=== PATIENT | male | born 1955 | race Caucasian/White ===

== ENCOUNTER → 2023-05-17 | Outpatient (CLI) | payer MEDICARE, SELFPAY ==
[2023-05-17 18:31] LABS: PSA,Total - Annual Screen 1.44 ng/mL (0.00-4.00); Thyroid Stim Hormone (TSH) 2.23 uIU/mL (0.358-3.74)
== END | disposition home or self-care (01) ==
LOC: MTLAB 16:54
PROVIDERS: Referring Provider Physician Assistant Surgical; Visit Provider Physician Assistant Surgical
DX: N40.0 Benign prostatic hyperplasia without lower urinary tract symptoms (principal); E03.9 Hypothyroidism, unspecified; Z12.5 Encounter for screening for malignant neoplasm of prostate
CPT/HCPCS: 36415; 84153; 84443; G0103

== ENCOUNTER → 2023-05-20 | Outpatient (CLI) | payer MEDICARE, SELFPAY ==
[2023-05-22 16:09] LABS: H.Pylori Breath Test Negative (Negative)
== END | disposition home or self-care (01) ==
PROVIDERS: Referring Provider Physician Assistant Surgical; Visit Provider Physician Assistant Surgical
DX: K29.70 Gastritis, unspecified, without bleeding (principal)
CPT/HCPCS: 83013

== ENCOUNTER 2023-09-11 15:49 | Emergency (ER) | payer MEDICARE, SELFPAY ==
[2023-09-11 15:52] VITALS: BP 204/92; PULSE 68; RESP 18; TEMP 36.1; O2SAT 100
--- NOTE | 2023-09-11 15:57 | EKG12_ITS ---
Test Reason : Blood Pressure : / mmHG Vent. Rate : 060 BPM Atrial Rate : 060 BPM P-R Int : 168 ms QRS Dur : 108 ms QT Int : 430 ms P-R-T Axes : 026 070 034 degrees QTc Int : 430 ms Normal sinus rhythm Normal ECG Confirmed by VENESSA CRAFT, ROBERT ([id number]), senior technical editor ELIJAH GAXIOLA ([id number]) on 09/16/2023 10:37:36 AM Referred By: Confirmed By:JUAN CARLOS CLIFFORD MD
--- NOTE | 2023-09-11 16:15 | NURSING ---
NO OLD EKGS
[2023-09-11 16:34] LABS: Absolute Lymphocyte Count 1.97 X10^3/uL (0.83-4.51); Absolute Neutrophil Count 5.9 X10^3/uL (2.0-7.7); Basophil# 0.04 X10^3/uL; Basophil% 0.4 % (0-1); Eosinophil# 0.36 X10^3/uL; Hematocrit 40.1 % (40-54); Hemoglobin 12.8 g/dL (13.0-16.5); Lymphocyte # 1.97 X10^3/ul (0.83-4.51); Lymphocyte % 21.9 % (19-41); Mean Corp Hgb Conc 31.9 g/dL (32-36); Mean Corpuscular Hgb 27.3 pg (27.0-32.0); Mean Corpuscular Volume 85.5 fL (80-94); Mean Platelet Vol. 10.6 fl (6.2-12.0); Monocyte# 0.66 X10^3/uL; Monocyte% 7.3 % (0-10); NRBC Flagged by Analyzer 0 % (0-5); Neutrophil # 5.92 X10^3/uL (2.7-7.7); Neutrophil % 66.1 % (47-70); Platelet Count 223 K/mm3 (150-450); RBC Distribution Width CV 13.4 % (11.6-14.6); RBC Distribution Width SD 41.9 fl (35.1-43.9); Red Blood Count 4.69 M/mm3 (4.6-6.2)
[2023-09-11 16:36] VITALS: BMI 28.8
[2023-09-11 16:37] VITALS: BP 208/86; PULSE 58; RESP 18; O2SAT 95
[2023-09-11 16:38] VITALS: O2SAT 97
--- NOTE | 2023-09-11 16:50 | RAD_ITS ---
RAD/Chest 1 View (Portable) IMPRESSION: No acute radiographic abnormalities. Electronically Signed: Johnathan Whitaker MD at 18:40 EST ,
[2023-09-11 16:51] LABS: Anion Gap 2 (5-15); BUN 12 mg/dL (7-18); Chloride 107 mmol/L (98-107); Creatinine, Serum 0.92 mg/dL (0.70-1.30); EST Glomerular Filtration Rate 87 mL/min (>60); Est Glom Filt Rate - Afr Amer 105 mL/min (>60); Estimated Creatinine Clearance 76.85 ml/min; Glucose 111 mg/dL (74-106); Potassium 3.2 mmol/L (3.5-5.1); Sodium Level 139 mmol/L (136-145); Troponin-I HS (w/2H Reflex) 7 pg/mL (3.0-78.0)
--- NOTE | 2023-09-11 16:59 | EDS_ITS ---
HPI History of Present Illness Chief Complaint: Chest Pain Informant: patient Onset/Context/Timing Onset: Today Activity at onset: sudden Timing: Intermittent and Lasts (Few seconds) Quality: Positive for Sharp and Tightness Location: Substernal Worsened By: Nothing Relieved By: Nothing Associated Symptoms: Positive for Nausea, Lightheadedness and Palpitations; Negative for Vomiting, Diaphoresis, Dyspnea, Cough, Fever or Acid Reflux Narrative Narrative: Patient presents with chest pain that began today. Patient states it has been intermittent. Patient states it lasts a few seconds. Patient describes it as sharp and tightness. Patient states it is over the substernal area. Patient states nothing makes it better nothing makes it worse. Patient admits to some nausea but denies any vomiting. Patient denies any shortness of breath or cough. Patient admits to some lightheadedness. Patient states he has had some vertigo recently where it feels like a spinning sensation. Patient also admits to some palpitations where he feels like his heart is racing at times. Patient also admits to a mild headache. CVD Risk Factors: Positive for Hypertension; Negative for Diabetes, Hypercholesterolemia, Family History 1' </=55 or Smoking PE Risk Factors: Negative for Recent Travel/Surgery, Recent Immobilization, Prior DVT or PE or Cancer [facility] Medical History (Updated 09/11/23 @ 19:[address] Momo Starks, ) Anxiety and depression BPH (benign prostatic hyperplasia) High cholesterol HTN (hypertension) Hypothyroid Home Medications levothyroxine 37.5 mcg capsule 37.5 mcg PO DAILY 05/17/23 [History Last Taken Unknown] metoprolol succinate 25 mg tablet,extended release 24 hr (Toprol XL) 100 mg PO DAILY 05/17/23 [History Last Taken Unknown] ondansetron HCl 8 mg tablet 8 mg PO Q8H PRN nausea and vomiting #30 tabs 05/17/23 [Rx Last Taken Unknown] bupropion HCl 150 mg tablet,12 hr sustained-release 150 mg PO DAILY 09/11/23 [History Last Taken Unknown] fluoxetine 20 mg capsule (Prozac) 20 mg PO DAILY 09/11/23 [History Last Taken Unknown] omeprazole 20 mg capsule,delayed release 20 mg PO DAILY 09/11/23 [History Last Taken Unknown] rosuvastatin 20 mg tablet 20 mg PO DAILY 09/11/23 [History Last Taken Unknown] tamsulosin 0.4 mg capsule (Flomax) 0.4 mg PO DAILY 09/11/23 [History Last Taken Unknown] Allergy/AdvReac Type Severity Reaction Status Date / Time codeine Allergy Hives Verified 09/11/23 15:52 Surgical History (Updated 09/11/23 @ 17:[address] Momo Starks, DO) Hx of rotator cuff surgery Hx of skin graft S/P ORIF (open reduction internal fixation) fracture Social History (Updated 09/11/23 @ 17:[address] Momo Starks, DO) Smoking Status: Never smoker substance use type: marijuana ROS ROS ED Constitutional Constitutional ED: Denies chills or fever(s) Eyes Eyes: Reports blurry vision; Denies change in vision ENT ENT ED: Reports rhinorrhea; Denies sore throat Cardiovascular Cardiovascular: Reports chest pain and palpitations Respiratory/Chest Respiratory/Chest: Denies cough or dyspnea Gastrointestinal Gastrointestinal: Reports nausea; Denies vomiting Genitourinary Genitourinary ED: Denies dysuria or hematuria Musculoskeletal Musculoskeletal: Denies back pain or neck pain Integumentary Denies abscess or rash Neurologic Neurologic: Reports headache(s); Denies weakness Allergic/Immunologic Allergic/Immunologic ED: Denies mouth swelling or urticaria EXAM Physical Exam Const Vital Signs: 09/11/23 15:52 09/11/23 16:37 09/11/23 16:38 Temperature 96.9 F L Temperature Source Temporal Pulse Rate 68 58 L Respiratory Rate 18 18 Respiratory Effort Blood Pressure 204/92 H 208/86 H Blood Pressure Mean 129 126 Pulse Ox 100 95 97 Oxygen Delivery Method Room Air Room Air Room Air 09/11/23 16:38 09/11/23 17:40 Temperature Temperature Source Pulse Rate 53 L Respiratory Rate 12 Respiratory Effort Normal Non-Labored Blood Pressure 178/82 H Blood Pressure Mean 114 Pulse Ox 97 Oxygen Delivery Method Room Air Positive well nourished, well developed and obese General Appearance ED: well developed and NAD Nutritional Appearance: obese HEENT Reports moist mucous membranes Neck supple and no JVD Resp normal respiratory effort and clear to auscultation bilaterally Cardio regular rate and regular rhythm GI soft to palpation and non-tender Extremity normal to inspection General Extremety ED: Negative for edema or tenderness General Extremity: Negative for edema Neuro oriented x3, CN's II-XII intact bilaterally and no sensory deficits noted Sensorium / Orientation: awake and alert Motor Exam: strength 5/5 throughout Heart Score History: Slightly/Non-Suspicious ECG: Normal Age: >/= 65 years Risk Factors: 1 or 2 Risk Factors Troponin: </= Normal Limit Score: 3 MDM MDM MDM Narrative Medical decision making narrative: Differential diagnosis includes cardiac dysrhythmia, cardiac ischemia, electrolyte abnormality, pneumonia, pneumothorax, musculoskeletal pain, and anxiety. EKG will be obtained to assess for cardiac dysrhythmia and cardiac ischemia. Chest x-ray will be obtained to assess for pneumonia and pneumothorax. CBC will be obtained to assess for leukocytosis and anemia. Basic metabolic profile will be obtained to assess for electrolyte abnormality and renal function. High-sensitivity troponin will be obtained to assess for cardiac ischemia. 2-hour repeat high-sensitivity troponin will be obtained to assess for ongoing cardiac ischemia. Patient has a Wells score of 0 and has no PE risk factors. Therefore, I do not feel this is from a pulmonary embolism. Lab Data Attestation: I reviewed the patient's lab results. Lab results narrative: CBC was reviewed and was within normal limits. Basic metabolic profile was reviewed. Potassium was slightly low at 3.2. High-sensitivity troponin was reviewed and was normal at 7. 2-hour repeat high-sensitivity troponin was reviewed and was normal at 8. Labs: Laboratory Results - last 24 hr 09/11/23 09/11/23 16:25 18:35 WBC 9.0 RBC 4.69 Hgb 12.8 L Hct 40.1 MCV 85.5 MCH 27.3 MCHC 31.9 L RDW Std Deviation 41.9 RDW Coeff of Kyung 13.4 Plt Count 223 MPV 10.6 Immature Gran % (Auto) 0.300 Neut % (Auto) 66.1 Lymph % (Auto) 21.9 [place] % (Auto) 7.3 Eos % (Auto) 4.0 Baso % (Auto) 0.4 Absolute Neuts (auto) 5.9 Absolute Lymphs (auto) 1.97 Nucleated RBC % 0 Sodium 139 Potassium 3.2 L Chloride 107 Carbon Dioxide 30.0 Anion Gap 2 L BUN 12 Creatinine 0.92 Estim Creat Clear Calc 76.85 Est GFR (MDRD) Af Amer 105 Est GFR (MDRD) Non-Af 87 BUN/Creatinine Ratio 13.0 Glucose 111 H Calcium 9.0 Troponin I High Sens 7 8 Radiography Chest X-Ray - ED: 1 View, Read by ED Physician, Read by Radiologist and No Acute Disease Diagnostic Testing: Clinical Impression(s) from Imaging Studies Chest X-Ray 09/11/23 16:50 IMPRESSION: No acute radiographic abnormalities. Electronically Signed: Johnathan Whitaker MD at 18:40 EST Reading Location ID and State: [id number] [facility] Tel , Service support , Portable 1 view chest x-ray was obtained. On my independent interpretation, lung hughes are clear. There is normal cardiac silhouette. Bony thorax is normal. There is no acute process noted. Radiologist also interpreted the x- ray and agrees. EKG Initial EKG: Attestation: I personally reviewed and interpreted this EKG as follows: Interpretation: Sinus Rhythm (60) and No Acute Injury Pattern Comments: EKG was obtained. On my independent interpretation, it showed a normal sinus rhythm with a rate of 60. VT interval, QRS interval, and QTc intervals were all normal. Vesper was normal. There are no acute ST or T wave changes. Prior EKG tracings: not available for review Prior: No Prior Treatment and Re-Evaluation :: Patient was advised of his findings. Patient was given a dose of oral potassium here. Patient is feeling better on reevaluation. Patient has a HEART score of 3. Patient was advised that this is low risk for acute cardiac event. Patient was instructed to follow-up with his primary care physician in 5 to 7 days. Patient was instructed to continue to monitor his blood pressure. Patient was instructed to return if worse in any way. Patient understood and was agreeable with the plan. All questions were answered. Discharge Plan Triage Chief Complaint: Chest Pain ED Provider: Momo Starks Dx/Rx/DC Orders Clinical Impression: Chest pain, Hypertension Instructions: ED Chest Pain, Uncertain Cause, ED Hypertension, Established Prescriptions: No Action ondansetron HCl 8 mg tablet 8 mg PO Q8H PRN (Reason: nausea and vomiting) Qty: 30 0RF metoprolol succinate [Toprol XL] 25 mg tablet extended release 24 hr 100 mg PO DAILY levothyroxine 37.5 mcg capsule 37.5 mcg PO DAILY bupropion HCl 150 mg tablet sustained-release 12 hr 150 mg PO DAILY rosuvastatin 20 mg tablet 20 mg PO DAILY fluoxetine [Prozac] 20 mg capsule 20 mg PO DAILY omeprazole 20 mg capsule,delayed release(DR/EC) 20 mg PO DAILY tamsulosin [Flomax] 0.4 mg capsule 0.4 mg PO DAILY Primary Care Provider: Suellen Pennington Referrals: Suellen Pennington DO [Primary Care Provider] - 5-7 Days Disposition Disposition: Home, Self Care
[2023-09-11] MEDS: Potassium Chloride Oral Tablet 20 MEQ 40 MEQ PO (17:38)
[2023-09-11 17:40] VITALS: BP 178/82; PULSE 53; RESP 12; O2SAT 97
[2023-09-11 18:31] LABS: Reflex Troponin-HS? (from REC) Y
[2023-09-11 19:00] VITALS: BP 180/86
[2023-09-11 19:00] LABS: Troponin-I HS 8 pg/mL (3.0-78.0)
== END 2023-09-11 19:43 | disposition home or self-care (01) ==
PROVIDERS: Emergency Provider Emergency Medicine; PCP Family Medicine; Visit Provider Emergency Medicine
DX: R07.9 Chest pain, unspecified (principal); E78.00 Pure hypercholesterolemia, unspecified; I10 Essential (primary) hypertension; E03.9 Hypothyroidism, unspecified; Z79.899 Other long term (current) drug therapy; F41.8 Other specified anxiety disorders; E87.6 Hypokalemia
CPT/HCPCS: 71045; 80048; 84484; 85025; 93005; 99284; A4216

== ENCOUNTER 2024-08-11 10:45 | Observation (INO) | payer MEDICARE, SELFPAY ==
[2024-08-11] VITALS (11 sets, daily range): BP systolic 116–237; BP diastolic 60–97; PULSE 42–60; RESP 11–19; TEMP 36–36.4; O2SAT 94–100; BMI 28.2; BMI 27.8
--- NOTE | 2024-08-11 10:54 | EKG12_ITS ---
Test Reason : CP Blood Pressure : / mmHG Vent. Rate : 048 BPM Atrial Rate : 048 BPM P-R Int : 182 ms QRS Dur : 102 ms QT Int : 448 ms P-R-T Axes : 015 035 043 degrees QTc Int : 400 ms Sinus bradycardia Otherwise normal ECG Confirmed by Oli Kiser ([id number]), window caser ELIJAH GAXIOLA ([id number]) on 08/12/2024 6:46:50 AM Referred By: Confirmed By:Oli Kiser
--- NOTE | 2024-08-11 10:54 | ED.RN ---
PT WAS SEEN BY PCP YESTERDY AND ADVISED TO COME OVER. PT DID NOT WANT TO COME IN. IS PRESENT AT THE BEDSIDE AND BROUGHT HIM TODAY. SHE SAID HE HAS HAD THESE EPISODES IN THE PAST BUT THIS ONE SEEMED WORSE. HE HAS SOME SOB, FEELS FOGGY I HIS HEAD, AND FEELS A FLUTTERING IN HIS CHEST. DR. ZAMBRANO AT BEDSIDE AND EKG COMPLETED NOW.
--- NOTE | 2024-08-11 10:55 | CT_ITS ---
STUDY: CT BRAIN WITHOUT CONTRAST REASON FOR EXAM: Male, 68 years old. Headache, hypertension RADIATION DOSAGE (If Supplied By Facility): CTDIvol = ( 44.99 ) mGy, DLP = ( 846.73 ) mGycm TECHNIQUE: Transaxial CT imaging of the brain was performed without administration of intravenous contrast material. Individualized dose optimization techniques were used for this CT. COMPARISON: No relevant priors. FINDINGS: Normal soft tissue structures. Normal calvarium. There is mild cerebral atrophy with widening of the extra-axial spaces and ventricular dilatation. Normal white matter tracts of the cerebral hemispheres. Normal basal ganglia and thalami. Normal brainstem. Normal cerebellum. There is no intracranial hemorrhage. There are no findings of an acute ischemic infarction. Nodular mucosal thickening at the base of both maxillary sinuses slightly more prominent on the left side. Partial opacification of the ethmoid sinuses bilaterally. Mucosal thickening of the sphenoid sinus more prominent on the right side. CT/Brain/Head without Contrast IMPRESSION: Chronic involutional changes of the brain. Sinusitis. Electronically Signed: Gerard Nuñez MD at 11:19 EDT ,
--- NOTE | 2024-08-11 10:56 | ED.VIS.CHEST ---
HPI History of Present Illness Chief Complaint: Chest Pain Narrative Narrative: 68-year-old male past medical history of hypertension, presents with multiple complaints ranging from bradycardia to chest pain to brain fog/headache that he has had for the last 4 to 5 days. His states that he has past medical history of anxiety and gets frequent panic attacks as well. He was seen by his primary care provider yesterday, who wanted to refer him to cardiology, and told him to come to the emergency department because of bradycardia in the 40s. He does take metoprolol but they state that he had it changed to 50 mg down from 100. He mistakenly took 100 mg today. He and his state that he has had intermittent chest pain over the last 4 to 5 days, more frequently. Pain only lasts a few minutes. No nausea or vomiting, no shortness of breath. He states that his brain feels foggy. He has had intermittent headaches as well. He states he is not feeling well, and is very lightheaded and somewhat weak. CVD Risk Factors: Positive for Hypertension [facility] Medical History Anxiety and depression Hypothyroid BPH (benign prostatic hyperplasia) High cholesterol HTN (hypertension) Home Medications ?Medication ?Instructions ?Recorded ?Last Taken ?Type rosuvastatin 20 mg tablet 20 mg PO DAILY CHOLESTEROL 09/11/23 08/11/24 History tamsulosin 0.4 mg capsule (Flomax) 0.4 mg PO DAILY PROSTATE 09/11/23 08/11/24 History clonazepam 0.5 mg tablet 0.5 mg PO DAILY ANXIETY 08/11/24 08/10/24 History fluoxetine 40 mg capsule 40 mg PO DAILY DEPRESSION 08/11/24 08/11/24 History levothyroxine 75 mcg tablet 75 mcg PO DAILY THYROID 08/11/24 08/11/24 History metoprolol succinate 50 mg 50 mg PO DAILY BLOOD PRESSURE 08/11/24 Unknown History tablet,extended release 24 hr omeprazole 40 mg capsule,delayed 40 mg PO BID GERD 08/11/24 08/11/24 History release trazodone 50 mg tablet 50 mg PO QHS SLEEP 08/11/24 Unknown History Allergy/AdvReac Type Severity Reaction Status Date / Time codeine Allergy Hives Verified 08/11/24 11:04 Surgical History S/P ORIF (open reduction internal fixation) fracture Hx of rotator cuff surgery Hx of skin graft Social History Smoking Status: Never smoker substance use type: marijuana ROS ROS ED ROS Narrative Constitutional: No fever, no chills. HEENT: No sore throat. No neck pain. No loss of vision. No rhinorrhea. Cardiovascular: Intermittent chest pain. Positive palpitations. No pedal edema. Low heart rate in the 40s. Respiratory: No cough, no shortness of breath. Abdominal: No abdominal pain. No nausea. No vomiting. Genitourinary: No dysuria. No hematuria. Musculoskeletal: No myalgias. No arthralgias. Neurologic: Positive headaches. Brain feels foggy. No dizziness. Positive lightheadedness and weakness. Skin: No rash. No change in color. Psychiatric: No depression. Positive anxiety. EXAM Physical Exam Narrative Exam Narrative: Afebrile. Vital signs noted. HEENT: Normocephalic. Atraumatic. PERRL, EOMI. Neck soft and supple. No point tenderness or step off. Cardiovascular: Positive bradycardia, no murmurs, rubs, or gallops appreciated. Respiratory: No tachypnea. Lungs clear to auscultation bilaterally. Gastrointestinal: Abdomen soft, nontender, with normoactive bowel sounds. No rebound or guarding. Neurological: Awake. Alert. Nonfocal, nonlateralizing. Skin: No rash. Normal color. No pallor. Musculoskeletal: No pedal edema. Full range of motion extremities. Const Vital Signs: 08/11/24 10:46 08/11/24 10:50 08/11/24 10:50 Temperature 96.8 F L Temperature Source Temporal Pulse Rate 49 L Respiratory Rate 19 H Respiratory Effort Short of Breath Short of Breath Blood Pressure 200/97 H Blood Pressure Mean 131 Pulse Ox 100 Oxygen Delivery Method Room Air 08/11/24 10:54 08/11/24 11:46 08/11/24 12:00 Temperature Temperature Source Pulse Rate 49 L 44 L Respiratory Rate 18 16 Respiratory Effort Blood Pressure 184/87 H 184/87 H Blood Pressure Mean 119 119 Pulse Ox 100 94 98 Oxygen Delivery Method Room Air Room Air MDM MDM MDM Narrative Medical decision making narrative: Differential diagnosis includes but not limited to symptomatic bradycardia versus hypertensive encephalopathy versus ACS/non-STEMI. I reviewed the patient's prior records. Second 2022, he did have an episode of chest pain and was ruled out with biomarkers. EKG was obtained and interpreted by myself independently as sinus bradycardia at 48 bpm without ectopy. No noted STEMI. No significant change from September 11, 2023. Patient does have severely elevated systolic blood pressure here in the emergency department initially 200s systolic. He may be having hypertensive encephalopathy versus hypertensive urgency/emergency versus uncontrolled hypertension versus panic attack/anxiety. I reviewed his laboratory work and he has normal white count of 6.7 with hemoglobin normal at 13.4, hematocrit 42.3, electrolyte panel shows sodium of 141 with potassium 3.8, BUN 11 and creatinine normal at 0.98, glucose appropriately elevated at 105 with anion gap normal at 6. Initial high-sensitivity troponin is 4. TSH is elevated at 4.030. This is consistent with his hypothyroidism. He and his state that he is on Synthroid. I reviewed the radiology report of the CT of the brain and there is no acute process, no hemorrhage. Chest x-ray 1 view interpreted by myself independently shows no pneumonia or pneumothorax. I do not feel antibiotics are indicated. I reviewed the radiology report which confirms my independent interpretation. Upon repeat examination, briefly his blood pressure came down to 184/87, but then was 196 systolic. This may be related to some anxiety as stated previously versus uncontrolled hypertension. As his heart rate is as low as 41, he will be given hydralazine 10 mg IV. He was prescribed Klonopin yesterday and is still very anxious and has not taken it so he will be administered Ativan 0.5 mg IV. Given his symptomatic bradycardia, I do feel that he requires at least observation. Patient will be discussed with the hospitalist. He is in stable condition. History & Record Review Discussion w/independent historian: Patient and Family Lab Data Attestation: I reviewed the patient's lab results. Labs: Laboratory Results - last 24 hr 08/11/24 11:02 WBC 6.7 RBC 4.82 Hgb 13.4 Hct 42.3 MCV 87.8 MCH 27.8 MCHC 31.7 L RDW Std Deviation 42.4 RDW Coeff of Kyung 13.2 Plt Count MPV 11.2 Immature Gran % (Auto) 0.400 Neut % (Auto) 66.2 Lymph % (Auto) 19.8 [place] % (Auto) 8.1 Eos % (Auto) 4.9 Baso % (Auto) 0.6 Absolute Neuts (auto) 4.4 Absolute Lymphs (auto) 1.32 Nucleated RBC % 0 Differential Comment SCANNED Platelet Estimate ADEQUATE Plt Morphology Comment CLUMPED RBC Morphology NORM C+C Sodium 141 Potassium 3.8 Chloride 106 Carbon Dioxide 29.0 Anion Gap 6 BUN 11 Creatinine 0.98 Estim Creat Clear Calc 77.59 Est GFR (MDRD) Af Amer 98 Est GFR (MDRD) Non-Af 81 BUN/Creatinine Ratio 11.3 Glucose 105 Calcium 9.2 Troponin I High Sens 4 TSH 4.030 H Radiography Diagnostic Testing: Clinical Impression(s) from Imaging Studies Brain CT 08/11/24 10:55 IMPRESSION: Chronic involutional changes of the brain. Sinusitis. Electronically Signed: Gerard Nuñez MD at 11:19 EDT , Chest X-Ray 08/11/24 11:10 IMPRESSION: No acute abnormality is seen. Electronically Signed: Gerard Nuñez MD at 11:23 EDT , Management Discussion w/another healthcare provider: Hospitalist (Dr. Nirali Parker) Discharge Plan Dx/Rx/DC Orders Clinical Impression: Symptomatic bradycardia, Hypothyroidism, Hypertension, Anxiety Disposition Disposition: Acute Care Hospital [facility]
[2024-08-11] MEDS: Aspirin 81 MG TAB.CHEW 324 MG PO (11:02)
--- NOTE | 2024-08-11 11:10 | RAD_ITS ---
STUDY: X-RAY CHEST REASON FOR EXAM: Male, 68 years old. Chest pain TECHNIQUE: Single AP portable view of the chest. COMPARISON: Comparison is made with prior study dated September 11, 2023. FINDINGS: EKG electrodes are seen. The lungs are clear and expanded. There is no demonstrated pleural abnormality. Normal size heart. Normal mediastinum and pradeep. Normal visualized pulmonary arteries. There is atherosclerotic tortuosity of the aortic arch and descending thoracic aorta. There are degenerative changes of the visualized thoracic spine. Normal visualized ribs, clavicles, and shoulders. There is no demonstrated abnormality of the visualized soft tissue structures of the upper abdomen. RAD/Chest 1 View (Portable) IMPRESSION: No acute abnormality is seen. Electronically Signed: Gerard Nuñez MD at 11:23 EDT ,
[2024-08-11 11:22] LABS: Absolute Lymphocyte Count 1.32 X10^3/uL (0.83-4.51); Absolute Neutrophil Count 4.4 X10^3/uL (2.0-7.7); Basophil# 0.04 X10^3/uL; Basophil% 0.6 % (0-1); Eosinophil# 0.33 X10^3/uL; Eosinophils% 4.9 % (0-5); Hematocrit 42.3 % (40-54); Hemoglobin 13.4 g/dL (13.0-16.5); Lymphocyte # 1.32 X10^3/ul (0.83-4.51); Lymphocyte % 19.8 % (19-41); Mean Corp Hgb Conc 31.7 g/dL (32-36); Mean Corpuscular Hgb 27.8 pg (27.0-32.0); Mean Corpuscular Volume 87.8 fL (80-94); Mean Platelet Vol. 11.2 fl (6.2-12.0); Monocyte# 0.54 X10^3/uL; Monocyte% 8.1 % (0-10); NRBC Flagged by Analyzer 0 % (0-5); Neutrophil # 4.41 X10^3/uL (2.7-7.7); Neutrophil % 66.2 % (47-70); POSITIVE COUNT YES; RBC Distribution Width CV 13.2 % (11.6-14.6); RBC Distribution Width SD 42.4 fl (35.1-43.9); Red Blood Count 4.82 M/mm3 (4.6-6.2); White Blood Count 6.7 K/mm3 (4.4-11.0)
[2024-08-11 11:44] LABS: Anion Gap 6 (5-15); BUN 11 mg/dL (7-18); BUN/Creat Ratio 11.3 RATIO (10-20); Calcium,Total 9.2 mg/dL (8.5-10.1); Chloride 106 mmol/L (98-107); Creatinine, Serum 0.98 mg/dL (0.70-1.30); EST Glomerular Filtration Rate 81 mL/min (>60); Est Glom Filt Rate - Afr Amer 98 mL/min (>60); Estimated Creatinine Clearance 77.59 ml/min; Glucose 105 mg/dL (74-106); Potassium 3.8 mmol/L (3.5-5.1); Sodium Level 141 mmol/L (136-145); Troponin-I HS (w/2H Reflex) 4 pg/mL (3.0-78.0)
[2024-08-11 11:55] LABS: Differential Indicated SCAN CRITERIA MET
[2024-08-11 11:56] LABS: Differential Comment SCANNED; Platelet Estimate ADEQUATE (ADEQ); Platelet Morphology CLUMPED; Red Cell Morphology NORM C+C NORMAL (NORM C&C)
[2024-08-11 13:07] LABS: Reflex Troponin-HS? (from REC) Y
--- NOTE | 2024-08-11 13:08 | ECHOD_ITS ---
Reason For Study: BRADYCARDIA/CHEST PAIN Procedure This was a 2D Doppler, Color Flow transthoracic echocardiogram. Exam performed portable in patient room. Left Ventricle Normal LV size. Left ventricular systolic function is normal. The left ventricular ejection fraction is 65 %. Stage 1 diastolic dysfunction. No regional wall motion abnormalities noted. Right Ventricle Normal RV size. Normal systolic function. Tricuspid Valve Normal tricuspid valve. Mild (1+) tricuspid valve insufficiency. Pulmonary artery systolic pressure is 24 mmHg. Aortic Valve Trisinus/trileaflet aortic valve. Pulmonic Valve Normal pulmonic valve. Great Vessels Normal aortic root. The pulmonary artery is normal size. Normal inferior vena cava. Pericardium/Pleural No pericardial effusion. MMode/2D Measurements & Calculations LVIDd: 5.1 cm IVSd: 1.1 cm LVOT diam: 2.1 cm LVIDs: 2.9 cm LVPWd: 0.85 cm LVOT area: 3.5 cm2 RVDd: 3.6 cm FS: 43.2 % asc Aorta Diam: 3.8 cm LAV(MOD-bp): 52.2 ml LVAd ap4: 31.3 cm2 LAV(MOD-bp) Indexed: 25.8 ml/m2 LVLd ap4: 9.0 cm LAV(MOD-sp2): 58.6 ml EDV(MOD-sp4): 90.1 ml LAV(MOD-sp4): 43.5 ml EDV(sp4-el): 92.3 ml LVAs ap4: 16.5 cm2 LVLs ap4: 7.0 cm ESV(MOD-sp4): 32.3 ml ESV(sp4-el): 33.1 ml EF(MOD-sp4): 64.1 % EF(sp4-el): 64.1 % SV(MOD-sp4): 57.7 ml SV(MOD-sp2): 47.0 ml LVAd ap2: 28.8 cm2 LVLd ap2: 9.1 cm EDV(MOD-sp2): 77.1 ml EDV(sp2-el): 77.7 ml LVAs ap2: 16.1 cm2 LVLs ap2: 7.4 cm ESV(MOD-sp2): 30.1 ml ESV(sp2-el): 29.6 ml EF(MOD-sp2): 61.0 % SV(sp4-el): 59.2 ml Ao sinus diam: 3.[address] Junction: 3.1 cm LA A4 area: 18.1 cm2 LA dimension(2D): 3.9 cm RA A4 area: 11.8 cm2 TAPSE: 2.6 cm Time Measurements MV dec time: 0.24 sec Doppler Measurements & Calculations MV E max mack: 62.2 cm/sec Lat Peak E' Mack: 12.3 cm/sec Med Peak E' Mack: 7.8 cm/sec MV A max mack: 77.5 cm/sec E/E' lat: 5.0 E/E' med: 7.9 MV E/A: 0.80 Ao V2 max: 131.9 cm/sec LV V1 max: 116.3 cm/sec MV dec slope: 254.6 cm/sec2 Ao max P.0 mmHg LV V1 max P.4 mmHg Ao V2 mean: 81.9 cm/sec LV V1 mean P.8 mmHg Ao mean P.2 mmHg LV V1 mean: 79.4 cm/sec Ao V2 VTI: 29.2 cm LV V1 VTI: 25.4 cm AV (velocity ratio): 0.87 EDUAR(I,D): 3.1 cm2 EDUAR(V,D): 3.1 cm2 SV(LVOT): 89.4 ml PA V2 max: 104.0 cm/sec PI end-d mack: 102.4 cm/sec PA max PG (full): 2.3 mmHg TR max mack: 227.9 cm/sec TR max P.8 mmHg ECHO/Echo Complete Interpretation Summary Normal LV size. Left ventricular systolic function is normal. The left ventricular ejection fraction is 65 %. Stage 1 diastolic dysfunction. Structurally normal valves. Ordering Physician: Gabbie Parker Performed By: Anayeli Elizabeth RDCS and Student
[2024-08-11] MEDS: LORazepam 2 MG/ML Syringe 0.5 MG IV (13:09)
[2024-08-11] MEDS: hydrALAZINE 20 MG/ML Vial 10 MG IV ×2 (13:09→21:59)
[2024-08-11 13:24] LABS: T4 Free Direct 0.95 ng/dL (0.76-1.46)
[2024-08-11 13:39] LABS: Troponin-I HS 6 pg/mL (3.0-78.0)
[2024-08-11] MEDS: Losartan Potassium 50 MG Tablet PO (14:34)
--- NOTE | 2024-08-11 15:07 | PCM.HP.STD ---
HPI - General General Date of Admission: 08/11/24 Date of Service: 08/11/24 Chief Complaint: Chest pain HPI Narrative YOHANA CORONADO, is a 68 M who presented to the emergency department at [facility] on 08/11/2024 due to chest pain. Patient reports that he was noted to have bradycardia by his primary care provider the day prior to presentation and they wanted to refer him to cardiology. They told him to come to the emergency department due to his bradycardia at which time his heart rate was noted to be in the 40s. He is on metoprolol at baseline but the patient reported that they have changed the dose from 100 mg daily to 50 mg daily but he accidentally took the 100 mg dose today. His indicated he had had intermittent chest pain over the last 5 to 5 days that had been minutes in duration with no radiation, associated nausea or shortness of breath. He had had some intermittent diaphoresis but this occurs when he seems to get anxiety attacks as well. Patient did indicate he has been somewhat lightheaded and weak with some intermittent headaches and indicates his brain feels kind of foggy. Vital signs on presentation showed temperature of 96.8, heart rate was 49, respiratory rate was 19 and blood pressure was 200/97 with a pulse ox of 100% on room air. CBC was unremarkable. Chemistry panel was unremarkable. Troponin initially was 4. TSH was 4.03 with a free T4 of 0.95. EKG showed sinus bradycardia with a heart rate in the 40s and normal intervals and no ST-T wave changes concerning for acute ischemia. Chest x-ray was unremarkable. CT of the brain shows chronic involutional changes and chronic sinusitis. [facility] Medical History Substance abuse Kidney stones Cooper esophagus Non-smoker CPAP (continuous positive airway pressure) dependence Irregular heart beat Migraines Anxiety and depression Hypothyroid BPH (benign prostatic hyperplasia) High cholesterol HTN (hypertension) Home Medications ?Medication ?Instructions ?Recorded ?Last Taken ?Type rosuvastatin 20 mg tablet 20 mg PO DAILY CHOLESTEROL 09/11/23 08/11/24 History tamsulosin 0.4 mg capsule (Flomax) 0.4 mg PO DAILY PROSTATE 09/11/23 08/11/24 History clonazepam 0.5 mg tablet 0.5 mg PO DAILY ANXIETY 08/11/24 08/10/24 History fluoxetine 40 mg capsule 40 mg PO DAILY DEPRESSION 08/11/24 08/11/24 History levothyroxine 75 mcg tablet 75 mcg PO DAILY THYROID 08/11/24 08/11/24 History metoprolol succinate 50 mg 50 mg PO DAILY BLOOD PRESSURE 08/11/24 Unknown History tablet,extended release 24 hr omeprazole 40 mg capsule,delayed 40 mg PO BID GERD 08/11/24 08/11/24 History release trazodone 50 mg tablet 50 mg PO QHS SLEEP 08/11/24 Unknown History Allergy/AdvReac Type Severity Reaction Status Date / Time codeine Allergy Hives Verified 08/11/24 11:04 Surgical History S/P ORIF (open reduction internal fixation) fracture Hx of rotator cuff surgery Hx of skin graft Social History Smoking Status: Never smoker substance use type: marijuana ROS Constitutional Constitutional: Reports fatigue and weakness; Denies anorexia, change in weight, chills, fever(s), malaise, night sweats or other Eyes Eyes: Denies blurry vision, change in eye color, change in vision, discharge from eye(s), double vision, erythema, eye pain, loss of vision or other ENT HEENT: Denies abnormal hearing, dysphagia, ear pain, epistaxis, headache(s), hearing loss, nasal congestion, nasal discharge, post nasal drip, sinus pressure, sore throat or other Cardiovascular Cardiovascular: Reports chest pain and lightheadedness; Denies claudication, dyspnea on exertion, edema, orthopnea, palpitations, paroxysmal nocturnal dyspnea, rapid heart rate, syncope or other Respiratory/Chest Respiratory/Chest: Denies cough, dyspnea, excessive phlegm production, hemoptysis, productive cough, shortness of breath at rest, shortness of breath with exertion, wheezing or other Gastrointestinal Gastrointestinal: Denies abdominal pain, coffee ground emesis, constipation, diarrhea, dyspepsia, hematemesis, hematochezia, loose stools, melena, nausea, vomiting or other Genitourinary Genitourinary: Denies burning urination, difficulty urinating, dysuria, hematuria, nocturia, urinary frequency, urinary hesitancy, urinary incontinence, urinary urgency or other Musculoskeletal Musculoskeletal: Denies arthralgias, back pain, joint pain, joint stiffness, joint swelling, myalgias, neck pain or other Neurologic Neurologic: Denies abnormal gait, abnormal speech, confusion, disequilibrium, dizziness, focal weakness, headache(s), numbness, paresthesias, seizure-like activity, seizures, syncope, tingling, tremor(s) or other Psychiatric Psychiatric: Reports anxiety and other Details: Intermittent panic attacks ; Denies depression, homicidal ideation or suicidal ideation Endocrine Endocrinology: Denies change in body appearance, cold intolerance, excessive sweating, heat intolerance, polydipsia, polyuria or other Hematologic/Lymphatic Hematologic/Lymphatic: Denies anemia, easy bleeding, easy bruising, lymphadenopathy or other Allergic/Immunologic Allergic/Immunologic: Denies rhinitis, hives, eczemia, asthma or other Vital Signs Vital Signs Vital Signs: 08/11/24 10:46 08/11/24 10:50 08/11/24 10:50 Temperature 96.8 F L Temperature Source Temporal Pulse Rate 49 L Respiratory Rate 19 H Respiratory Effort Short of Breath Short of Breath Blood Pressure 200/97 H Blood Pressure Mean 131 Blood Pressure Source Blood Pressure Position Blood Pressure Location Pulse Ox 100 Oxygen Delivery Method Room Air 08/11/24 10:54 08/11/24 11:46 08/11/24 12:00 Temperature Temperature Source Pulse Rate 49 L 44 L Respiratory Rate 18 16 Respiratory Effort Blood Pressure 184/87 H 184/87 H Blood Pressure Mean 119 119 Blood Pressure Source Blood Pressure Position Blood Pressure Location Pulse Ox 100 94 98 Oxygen Delivery Method Room Air Room Air 08/11/24 13:00 08/11/24 13:36 08/11/24 14:25 Temperature 97.6 F L 97.5 F L Temperature Source Temporal Pulse Rate 42 L 47 L 58 L Respiratory Rate 11 L 16 18 Respiratory Effort Blood Pressure 237/89 H 209/83 H 145/81 H Blood Pressure Mean 129 125 102 Blood Pressure Source Monitor Blood Pressure Position Semi-Fowlers Blood Pressure Location Left Arm Pulse Ox 99 98 96 Oxygen Delivery Method Room Air Weight Weight: 85.7 kg Body Mass Index (BMI) 27.8 Results Lab / Micro Data 08/11/24 11:02 08/11/24 11:02 Labs: Laboratory Results - last 24 hr 08/11/24 11:02: WBC 6.7, RBC 4.82, Hgb 13.4, Hct 42.3, MCV 87.8, MCH 27.8, MCHC 31.7 L, RDW Std Deviation 42.4, RDW Coeff of Kyung 13.2, Plt Count , MPV 11.2, Immature Gran % (Auto) 0.400, Neut % (Auto) 66.2, Lymph % (Auto) 19.8, Wilkin % (Auto) 8.1, Eos % (Auto) 4.9, Baso % (Auto) 0.6, Absolute Neuts (auto) 4.4, Absolute Lymphs (auto) 1.32, Nucleated RBC % 0, Differential Comment SCANNED, Platelet Estimate ADEQUATE, Plt Morphology Comment CLUMPED, RBC Morphology NORM C+C, Sodium 141, Potassium 3.8, Chloride 106, Carbon Dioxide 29.0, Anion Gap 6, BUN 11, Creatinine 0.98, Estim Creat Clear Calc 77.59, Est GFR (MDRD) Af Amer 98, Est GFR (MDRD) Non-Af 81, BUN/Creatinine Ratio 11.3, Glucose 105, Calcium 9.2, Troponin I High Sens 4, TSH 4.030 H, Free T4 0.95 08/11/24 13:15: Troponin I High Sens 6 Imaging Radiology Impression Brain CT 08/11/24 10:55 IMPRESSION: Chronic involutional changes of the brain. Sinusitis. Electronically Signed: Gerard Nuñez MD at 11:19 EDT , Chest X-Ray 08/11/24 11:10 IMPRESSION: No acute abnormality is seen. Electronically Signed: Gerard Nuñez MD at 11:23 EDT , Assessment & Plan Assessment/Plan (1) Symptomatic bradycardia: (2) Chest pain: PLAN: Plan Chest pain -Cycle cardiac enzymes -Check stress test in a.m. be a treadmill to assess exercise response with bradycardia in addition to assess chest pain -Check lipid panel -Check echocardiogram -Will have to hold home metoprolol due bradycardia Bradycardia -Suspect his fatigue and weakness is related to his heart rates -Hold home metoprolol for now -TSH showed very mild elevation of 4.03 with a normal free T4 so I doubt this is the etiology -Continue to monitor on telemetry Essential hypertension-uncontrolled -Appears to be uncontrolled -Hold home metoprolol -Check echocardiogram -Start losartan 50 mg daily -As needed hydralazine 10 mg every 6 hours for systolic blood pressure greater than 140 -Anticipate further treatment will be required but will monitor Hypothyroidism -Continue home levothyroxine GERD -Continue home omeprazole Hyperlipidemia -Check lipid panel with chest pain -Continue home rosuvastatin BPH with obstruction -Continue home Flomax Severe anxiety with panic disorder -Continue home clonazepam -Continue home fluoxetine Insomnia -Continue home trazodone DVT prophylaxis -Enoxaparin 40 subcu daily CODE STATUS -Full code Charges/Coding Visit Charges Inpatient E&M: 39551 Init Hosp L2
[2024-08-11 15:40] LABS: Troponin-I HS < 3 pg/mL (3.0-78.0)
[2024-08-11] MEDS: traZODone 50 MG Tablet PO (21:51)
[2024-08-11] MEDS: Pantoprazole Sodium 40 MG Tablet PO (21:52)
[2024-08-11] MEDS: 0.9% Saline Lock 10 ML Syringe IV (22:01)
[2024-08-12 04:00] VITALS: BP 179/86; PULSE 54; RESP 18; TEMP 36.8; O2SAT 97
[2024-08-12] MEDS: Acetaminophen 325 MG Tablet 650 MG PO (04:08)
[2024-08-12 04:12] VITALS: BP 179/86; PULSE 54
[2024-08-12] MEDS: hydrALAZINE 20 MG/ML Vial 10 MG IV (04:12)
[2024-08-12] MEDS: 0.9% Saline Lock 10 ML Syringe IV (05:33)
[2024-08-12] MEDS: Ondansetron 4 MG/2 ML Vial IV (05:33)
[2024-08-12] MEDS: Ibuprofen 400 MG Tablet PO (05:33)
[2024-08-12] MEDS: Losartan Potassium 50 MG Tablet PO (05:34)
[2024-08-12 05:39] LABS: Absolute Lymphocyte Count 1.23 X10^3/uL (0.83-4.51); Absolute Neutrophil Count 4.9 X10^3/uL (2.0-7.7); Basophil# 0.05 X10^3/uL; Basophil% 0.7 % (0-1); Eosinophil# 0.35 X10^3/uL; Hematocrit 38.9 % (40-54); Hemoglobin 12.6 g/dL (13.0-16.5); Lymphocyte # 1.23 X10^3/ul (0.83-4.51); Lymphocyte % 17.4 % (19-41); Mean Corp Hgb Conc 32.4 g/dL (32-36); Mean Corpuscular Hgb 28.1 pg (27.0-32.0); Mean Corpuscular Volume 86.6 fL (80-94); Mean Platelet Vol. 10.1 fl (6.2-12.0); Monocyte# 0.52 X10^3/uL; Monocyte% 7.4 % (0-10); NRBC Flagged by Analyzer 0 % (0-5); Neutrophil % 69.4 % (47-70); Platelet Count 191 K/mm3 (150-450); RBC Distribution Width CV 13.3 % (11.6-14.6); Red Blood Count 4.49 M/mm3 (4.6-6.2); White Blood Count 7.1 K/mm3 (4.4-11.0)
--- NOTE | 2024-08-12 05:55 | EKG12_ITS ---
Test Reason : AM EKG Blood Pressure : / mmHG Vent. Rate : 055 BPM Atrial Rate : 055 BPM P-R Int : 186 ms QRS Dur : 106 ms QT Int : 464 ms P-R-T Axes : 063 066 058 degrees QTc Int : 443 ms Sinus bradycardia Otherwise normal ECG When compared with ECG of 11-AUG-2024 10:53, MANUAL COMPARISON REQUIRED, DATA IS UNCONFIRMED Confirmed by GABINO CRAFT, YURY ([id number]), staff editor ELIJAH GAXIOLA ([id number]) on 08/12/2024 9:40:07 AM Referred By: ZAINAB Confirmed By:YURY LLOYD MD
[2024-08-12 06:29] LABS: ALB/GLOB Ratio 1.2 RATIO (0.9-2.4); AST(SGOT) 17 U/L (15-37); Alanine Aminotransfer ALT/SGPT 24 U/L (16-61); Albumin, Serum 3.6 g/dL (3.2-5.0); Alkaline Phosphatase 71 U/L (45-117); Anion Gap 6 (5-15); BUN 11 mg/dL (7-18); BUN/Creat Ratio 13.3 RATIO (10-20); Calcium,Total 8.7 mg/dL (8.5-10.1); Chloride 110 mmol/L (98-107); Cholesterol 180 mg/dL (200); Creatinine, Serum 0.83 mg/dL (0.70-1.30); EST Glomerular Filtration Rate 97 mL/min (>60); Est Glom Filt Rate - Afr Amer 118 mL/min (>60); Estimated Creatinine Clearance 91.13 ml/min; Globulin 3.1 g/dL (2.2-4.2); Glucose 114 mg/dL (74-106); High Density Lipoprotein 42 mg/dL; Magnesium 1.9 mg/dL (1.6-2.6); Phosphorus 2.6 mg/dL (2.5-4.9); Potassium 3.6 mmol/L (3.5-5.1); Protein, Total 6.7 g/dL (6.4-8.2); Sodium Level 140 mmol/L (136-145); Triglycerides 133 mg/dL; Very Low Density Lipoprotein 27 mg/dL (5-40)
[2024-08-12 06:50] VITALS: O2SAT 95
[2024-08-12 10:35] VITALS: BP 132/71; PULSE 78; RESP 18; TEMP 36.5; O2SAT 95
--- NOTE | 2024-08-12 10:54 | EKG12_ITS ---
Test Reason : CP Blood Pressure : / mmHG Vent. Rate : 057 BPM Atrial Rate : 057 BPM P-R Int : 196 ms QRS Dur : 112 ms QT Int : 450 ms P-R-T Axes : 030 044 049 degrees QTc Int : 438 ms Sinus bradycardia Otherwise normal ECG When compared with ECG of 12-AUG-2024 05:15, No significant change was found Confirmed by GABINO CRAFT, YURY ([id number]), photo editor ELIJAH GAXIOLA ([id number]) on 08/13/2024 1:00:50 PM Referred By: ZAINAB Confirmed By:YURY LLOYD MD
--- NOTE | 2024-08-12 10:57 | STRESSREP_ITS ---
Stress Test Report Exercise myocardial perfusion stress test. 68-year-old man with a history of chest pain Stress protocol: Resting EKG demonstrates sinus bradycardia with a rate of 58 bpm resting blood pressure is 158/90 mmHg. The patient exercised according to the regular Gu[place] protocol for a total duration of 7 minutes and 30 seconds attaining a maximum h eart rate of 131 bpm which was 86% of maximum predicted heart rate; the maximum workload was 10.1 metabolic equivalents. At rest there were no ST or T wave changes noted to suggest ischemia and at peak exercise upsloping ST changes only were noted which did not meet the criteria for ischemia. No clinical angina was noted the test was terminated due to the target heart rate being achieved/fatigue. The peak blood pressure was 210/78 mmHg. Rate-pressure product was 19,100. Myocardial perfusion protocol. 11.3 mCi of technetium 99m sestamibi was injected at rest. The patient exercised according to regular Guicho protocol for total duration of 7-1/2 minutes and at peak exercise 33.6 mCi of technetium 99m sestamibi was injected stress images were obtained stress and rest images were reconstructed in comparing the short axis vertical long and horizontal long axis. Gated images were also obtained. Perfusion SPECT analysis: Review of the stress images demonstrate normal uptake of tracer noted in all areas of the myocardium. The resting images similarly demonstrate normal uptake of tracer noted in all areas of the myocardium. No areas of reversibility are noted to suggest ischemia no previous infarct was noted. Gated SPECT analysis: The gated ejection fraction is 75%. Conclusion: Normal exercise myocardial perfusion stress test at a high workload Preserved ejection fraction.
[2024-08-12] MEDS: amLODIPine 10 MG Tablet PO (11:15)
[2024-08-12] MEDS: clonazePAM 0.5 MG Tablet PO (11:15)
[2024-08-12] MEDS: Atorvastatin Calcium 40 MG Tablet PO (11:15)
[2024-08-12] MEDS: Tamsulosin HCl 0.4 MG Capsule PO (11:15)
[2024-08-12] MEDS: Fluoxetine HCl 40 MG CAPSULE PO (11:15)
[2024-08-12] MEDS: Pantoprazole Sodium 40 MG Tablet PO (11:15)
[2024-08-12] MEDS: Enoxaparin 40 MG/0.4 ML Syringe SC (11:16)
[2024-08-12 11:55] VITALS: BP 136/79; PULSE 60; RESP 18; TEMP 36.3; O2SAT 96
--- NOTE | 2024-08-12 13:38 | CASEMGMT ---
MARY DICKINSON NOTE: MARY CM to room. Pt resting in bed, awaiting ST results. Introduced self and role. Pt denies having any discharge needs/concerns. He lives w/his , who will be the one taking him home @ discharge. He uses no AD to ambulate, states has been steady on his feet. He reports he did have a fall in the summer, stating he tripped over something and has had no issues since then. He would like to get his meds @ discharge from [facility] in [place] and his can stop there on the way home to pick them up. He uses a CPAP @ [facility] and denies need for other DME. Rhiannon SEVERINO RN, CM
--- NOTE | 2024-08-12 13:43 | CASEMGMT ---
Met with patient to complete JUNG form. JUNG form explained to patient who voiced understanding and signed form. Original form placed in pt?s chart and copy provided to patient. Lakisha Kent, Discharge Planning Asst
--- NOTE | 2024-08-12 14:10 | PCM.DC.SUM ---
Providers Date of Admission: 08/11/24 Date of Discharge: 08/12/24 Primary Care Physician: Dr. Suellen Pennington, DO Reason For Visit: SYMPTOMATIC BRADYCARDIA Diagnosis Discharge Diagnosis (1) Symptomatic bradycardia: Status: Acute Code(s): R00.1 - Bradycardia, unspecified (2) Chest pain: Status: Acute Code(s): R07.9 - Chest pain, unspecified Medications at Discharge Home Medications tamsulosin 0.4 mg capsule (Flomax) 0.4 mg PO DAILY PROSTATE 09/11/23 clonazepam 0.5 mg tablet 0.5 mg PO DAILY ANXIETY 08/11/24 fluoxetine 40 mg capsule 40 mg PO DAILY DEPRESSION 08/11/24 levothyroxine 75 mcg tablet 75 mcg PO DAILY THYROID 08/11/24 omeprazole 40 mg capsule,delayed release 40 mg PO BID GERD 08/11/24 trazodone 50 mg tablet 50 mg PO QHS SLEEP 08/11/24 amlodipine 10 mg tablet 10 mg PO DAILY #30 tabs 08/12/24 losartan 50 mg tablet 50 mg PO DAILY #30 tabs 08/12/24 rosuvastatin 40 mg tablet 40 mg PO DAILY #30 tabs 08/12/24 Hospital Course Procedures 2-D Echocardiogram, EKG, Stress test and - (CT brain/chest x-ray) Summary of Care Provided Minutes Spent on Discharge: 38 Hospital Course: YOHANA CORONADO, is a 68 M who presented to the emergency department at [facility] on 08/11/2024 due to chest pain. Patient reports that he was noted to have bradycardia by his primary care provider the day prior to presentation and they wanted to refer him to cardiology. They told him to come to the emergency department due to his bradycardia at which time his heart rate was noted to be in the 40s. He is on metoprolol at baseline but the patient reported that they have changed the dose from 100 mg daily to 50 mg daily but he accidentally took the 100 mg dose today. His indicated he had had intermittent chest pain over the last 5 to 5 days that had been minutes in duration with no radiation, associated nausea or shortness of breath. He had had some intermittent diaphoresis but this occurs when he seems to get anxiety attacks as well. Patient did indicate he has been somewhat lightheaded and weak with some intermittent headaches and indicates his brain feels kind of foggy. Vital signs on presentation showed temperature of 96.8, heart rate was 49, respiratory rate was 19 and blood pressure was 200/97 with a pulse ox of 100% on room air. CBC was unremarkable. Chemistry panel was unremarkable. Troponin initially was 4. TSH was 4.03 with a free T4 of 0.95. EKG showed sinus bradycardia with a heart rate in the 40s and normal intervals and no ST-T wave changes concerning for acute ischemia. Chest x-ray was unremarkable. CT of the brain shows chronic involutional changes and chronic sinusitis. He was admitted to the telemetry floor and his beta-ezra was held. An echocardiogram and a stress test were ordered. With holding his beta-ezra, his heart rates improved and at discharge were in the 60s. His echocardiogram showed an EF of 65% with normal LV function, stage I diastolic dysfunction and structurally normal valves. Right ventricular systolic pressure was 29 mmHg. Stress test was treadmill and at a high workload showed no inducible ischemia. We will continue to hold his beta-ezra at discharge and he has been started on losartan 50 mg daily and amlodipine 10 mg daily. Ideally his goal blood pressure would be less than 120/80 however per discussion with him at this time we are going to shoot for at least 130/80 or less. We did discuss that his blood pressure medications may need to be uptitrated depending on follow-up blood pressure measurements as an outpatient. He is going to take his blood pressure daily after his a.m. medications in the late morning or afternoon/evening and keep track and follow-up with his primary care physician at his next scheduled appointment in 2 weeks. Blood pressure at the time of discharge was 136/79. We did discuss that with his diastolic dysfunction on echocardiogram it was imperative that we keep his blood pressure down. A cholesterol panel was also obtained and his LDL was noted to be 111. This is greater than goal and he is already on rosuvastatin 20 mg daily. We did uptitrate his rosuvastatin from 20 to 40 mg and recommend a repeat cholesterol panel be obtained in the next 3 months. Prescriptions for the losartan, amlodipine, and rosuvastatin were sent to his local pharmacy. He was able to be discharged in stable condition to home on 08/12/2024. He indicates he already has follow-up with his primary care physician in 2 weeks. I encouraged him to keep this appointment. Discharge diagnoses: Chest pain-resolved Uncontrolled hypertension Bradycardia-resolving Hyperlipidemia Fatigue Hypothyroidism GERD BPH with obstruction Severe anxiety with panic disorder Insomnia Physical Exam Const alert, oriented x3, no apparent distress, no limitations, healthy appearing and well nourished Constitutional Narrative: Overweight, middle-aged, awake male, sitting up in bed watching television, appears comfortable, nontoxic General Appearance: cooperative, well kempt and well developed Orientation / Consciousness: awake, oriented to person, oriented to place and oriented to time Exam Limitations: no limitations Nutritional Appearance: overweight HEENT normocephalic, head/scalp atraumatic, hearing grossly normal bilaterally and moist oral mucous membranes HEENT Narrative: Mallampati 3, no thrush Eyes PERRL, EOMs intact bilaterally and conjunctivae normal Neck no lymphadenopathy and supple Neck Narrative: Trachea midline, no thyroid enlargement Resp normal respiratory effort, no retractions, no use of accessory muscles and clear to auscultation bilaterally Auscultation: Negative for rales, rhonchi or wheezes Cardio regular rate, regular rhythm, S1 normal heart sound, S2 normal heart sound, no murmurs, no rub, no gallops and no clicks GI normal to inspection, nondistended, normoactive bowel sounds, soft to palpation and non-tender Extremity no clubbing, cyanosis or edema Extremity Narrative: Pedal and radial pulses are 2+ Skin no rashes or lesions noted, no wounds, skin turgor normal and no jaundice Neuro oriented x3, moves all extremities and no focal motor deficits Speech: speech normal Psych affect normal Psych Narrative: Very pleasant, interacts appropriately, anxiety is better than yesterday at the time of admission Weight / BMI Weight Weight: 85.7 kg Body Mass Index (BMI) 27.8 ABG / Lab / Microbiology Data 08/12/24 05:25 08/12/24 05:25 Laboratory: Laboratory Results - last 24 hr 08/11/24 15:04: Troponin I High Sens < 3 L 08/12/24 05:25: WBC 7.1, RBC 4.49 L, Hgb 12.6 L, Hct 38.9 L, MCV 86.6, MCH 28.1, MCHC 32.4, RDW Std Deviation 42.0, RDW Coeff of Kyung 13.3, Plt Count 191, MPV 10.1, Immature Gran % (Auto) 0.100, Neut % (Auto) 69.4, Lymph % (Auto) 17.4 L, [place] % (Auto) 7.4, Eos % (Auto) 5.0, Baso % (Auto) 0.7, Absolute Neuts (auto) 4.9, Absolute Lymphs (auto) 1.23, Nucleated RBC % 0, Sodium 140, Potassium 3.6, Chloride 110 H, Carbon Dioxide 24.0, Anion Gap 6, BUN 11, Creatinine 0.83, Estim Creat Clear Calc 91.13, Est GFR (MDRD) Af Amer 118, Est GFR (MDRD) Non-Af 97, BUN/Creatinine Ratio 13.3, Glucose 114 H, Calcium 8.7, Phosphorus 2.6, Magnesium 1.9, Total Bilirubin 0.40, AST 17, ALT 24, Alkaline Phosphatase 71, Total Protein 6.7, Albumin 3.6, Globulin 3.1, Albumin/Globulin Ratio 1.2, Triglycerides 133, Cholesterol 180, LDL Cholesterol 111, VLDL Cholesterol 27, HDL Cholesterol 42 Radiography Diagnostic Testing: Radiology Impression Echocardiogram 08/11/24 13:08 Interpretation Summary Normal LV size. Left ventricular systolic function is normal. The left ventricular ejection fraction is 65 %. Stage 1 diastolic dysfunction. Structurally normal valves. Ordering Physician: Gabbie Parker Performed By: Anayeli Elizabeth RDCS and Student D/C Instructions Discharge Diet: Low fat / Low cholesterol Discharge Activity: Return to Normal Activity Return to work on: 08/13/24 Meaningful Use Info Meaningful Use Meaningful Use Diagnoses (Choose all that apply): None applicable Ischemic Stroke Statin Dosing Therapy Reference: STATIN DOSE THERAPY REFERENCE: * Patients > 75 years receive moderate or high dose statin therapy. * Patients 75 years or YOUNGER should receive HIGH intensity statin dose unless contraindicated. You will be required to document reason for non-treatment if statin daily dose does not meet guidelines. HIGH DOSE STATIN THERAPY DAILY Atorvastatin > than or = to 40 mg Rosuvastatin > than or = to 20 mg Amlodipine + Atorvastatin > than or = to 2.5/40 mg Ezetimibe + Simvastatin 10/80 mg Simvastatin 80mg Discharge Plan Admission Admit Date/Time: 08/11/24 12:48 Primary Reason for Your Visit: Chest Pain and Bradycardia Attending Provider: Gabbie Parker Primary Care Provider: Suellen Pennington Instructions Additional Instructions / Restrictions: 1. Please check your blood pressure once daily in the late morning or after and keep track and take your numbers to your primary care physician appointment in 2 weeks--> goal blood pressure should be less than 130/80 and ideally less than 120 systolic. 2. Your LDL was 111 with goal being less than 70 therefore we increased your rosuvastatin from 20 to 40 mg daily. He will need a repeat lipid profile in the next 3 months Discharge Orders/Prescriptions Prescriptions: New amlodipine 10 mg Tablet 10 mg PO DAILY Qty: 30 1RF losartan 50 mg Tablet 50 mg PO DAILY Qty: 30 1RF rosuvastatin 40 mg tablet 40 mg PO DAILY Qty: 30 1RF Continued tamsulosin [Flomax] 0.4 mg capsule 0.4 mg PO DAILY fluoxetine 40 mg capsule 40 mg PO DAILY trazodone 50 mg tablet 50 mg PO QHS clonazepam 0.5 mg tablet 0.5 mg PO DAILY levothyroxine 75 mcg tablet 75 mcg PO DAILY omeprazole 40 mg capsule,delayed release(DR/EC) 40 mg PO BID Discontinued rosuvastatin 20 mg tablet 20 mg PO DAILY metoprolol succinate 50 mg tablet extended release 24 hr 50 mg PO DAILY Referrals / Follow Up: Suellen Pennington DO [Primary Care Provider] - See Referral Note (As scheduled for 2 weeks) Disposition Disposition (needs filled in before D/C Order can be placed): Home, Self Care Charges/Coding Visit Charges Inpatient E&M: 68313 Disch Hosp >30min
[2024-08-12 14:15] VITALS: BP 136/74; PULSE 60; RESP 18; TEMP 36.3; O2SAT 96
--- NOTE | 2024-08-12 14:39 | PHA.DC.MC.R ---
Pharmacy [facility] Pharmacy Service has performed discharge medication reconciliation and counseling for this patient. 1. AMLODIPINE 10MG PO DAILY 2. LOSARTAN 50MG PO DAILY 3. STOP METOPROLOL 4. CRESTOR INCREASED TO 40MG The patient's discharge medication list was reviewed for discrepancies and discrepancies were resolved. The patient was counseled on the following discharge medications and changes in medications for homegoing were reviewed. The Reason for Use, instructions for use, and potential side effects were reviewed for all new medications. The patient's questions regarding all of their medications were answered. The patient was able to verbally demonstrate an understanding of their discharge medications. Medications at Discharge Home Medications tamsulosin 0.4 mg capsule (Flomax) 0.4 mg PO DAILY PROSTATE 09/11/23 clonazepam 0.5 mg tablet 0.5 mg PO DAILY ANXIETY 08/11/24 fluoxetine 40 mg capsule 40 mg PO DAILY DEPRESSION 08/11/24 levothyroxine 75 mcg tablet 75 mcg PO DAILY THYROID 08/11/24 omeprazole 40 mg capsule,delayed release 40 mg PO BID GERD 08/11/24 trazodone 50 mg tablet 50 mg PO QHS SLEEP 08/11/24 amlodipine 10 mg tablet 10 mg PO DAILY #30 tabs 08/12/24 losartan 50 mg tablet 50 mg PO DAILY #30 tabs 08/12/24 rosuvastatin 40 mg tablet 40 mg PO DAILY #30 tabs 08/12/24
== END 2024-08-12 14:14 | disposition home or self-care (01) ==
LOC: ED 12:33 → PCU 13:27
PROVIDERS: Admitting Provider Internal Medicine; Emergency Provider Emergency Medicine; PCP Family Medicine; Visit Provider Internal Medicine
DX: R00.1 Bradycardia, unspecified (principal); R07.89 Other chest pain; E78.00 Pure hypercholesterolemia, unspecified; I10 Essential (primary) hypertension; E03.9 Hypothyroidism, unspecified; F41.0 Panic disorder [episodic paroxysmal anxiety]; N40.1 Benign prostatic hyperplasia with lower urinary tract symptoms; N13.8 Other obstructive and reflux uropathy; G47.00 Insomnia, unspecified; K21.9 Gastro-esophageal reflux disease without esophagitis; R53.1 Weakness; R42 Dizziness and giddiness; F32.A Depression, unspecified; Z79.899 Other long term (current) drug therapy; Z79.890 Hormone replacement therapy
CPT/HCPCS: 36415; 70450; 71045; 78452; 80048; 80053; 80061; 83735; 84100; 84439; 84443; 84484; 85025; 93005; 93017; 93306; 94668; 96372; 96374; 96375; 96376; 97802; 99221; 99285; A9500; Q9957; A4216; G0378; J2405